=== PATIENT | male | born 1960 | race Caucasian/White ===

== ENCOUNTER → 2018-07-11 | Outpatient (CLI) | payer BC, OTHER | LOC: FIMAGING 12:06 | PROVIDERS: ATTEND Surgery | DX: S27.1XXD Traumatic hemothorax, subsequent encounter (principal) ==

== ENCOUNTER → 2018-07-14 | Outpatient (CLI) | payer BC, OTHER | LOC: FIMAGING 12:35 | PROVIDERS: ATTEND Surgery | DX: J90 Pleural effusion, not elsewhere classified (principal) ==

== ENCOUNTER → 2018-07-21 | Outpatient (CLI) | payer OTHER | LOC: FIMAGING 10:25 | PROVIDERS: ATTEND Surgery | DX: J98.11 Atelectasis (principal) ==

== ENCOUNTER 2018-07-25 18:33 | Emergency (ER) | payer OTHER ==
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
[2018-07-25 19:34] LABS: PLATELET COUNT 394 10^3/uL (150-400)
[2018-07-25] MEDS ORDERED: IOPAMIDOL (ISOVUE 370) 100 ML BTL IV ONE (19:34)
[2018-07-25 19:57] LABS: INR 0.92 (0.83-1.16); PROTIME(PATIENT) 12.6 SEC (12.0-15.0)
[2018-07-25 20:39] VITALS: BP 154/103
[2018-07-25] MEDS ORDERED: ALBUTEROL INH PREPACK MDI TAKEHOME ONE (21:14)
--- NOTE | 2018-07-26 18:22 | CPEKG ---
Test Reason : OPEN Blood Pressure : / mmHG Vent. Rate : 087 BPM Atrial Rate : 087 BPM P-R Int : 151 ms QRS Dur : 091 ms QT Int : 381 ms P-R-T Axes : 080 -24 042 degrees QTc Int : 459 ms Sinus rhythm Probable left atrial enlargement Inferior infarct, old Confirmed by Jono Chavez ([id number]) on 07/26/2018 6:21:57 PM Referred By: Confirmed By:Jono Chavez
== END 2018-07-25 21:25 | disposition home or self-care (01) ==
DX: R06.02 Shortness of breath (principal); J98.11 Atelectasis
CPT/HCPCS: 82435-PO; 82565-PO; 82947-PO; 84132-PO; 84295-PO; 84484-PO; 84520-PO; 85014-PO; Q9967

== ENCOUNTER → 2018-08-11 | Outpatient (CLI) | payer OTHER | LOC: FIMAGING 13:01 | PROVIDERS: ATTEND Surgery | DX: J98.4 Other disorders of lung (principal); S22.42XA Multiple fractures of ribs, left side, initial encounter for closed fracture ==